=== PATIENT | male | born 1955 | race Caucasian/White ===

== ENCOUNTER 2016-03-21 05:20 | Inpatient (IN) | payer OTHER ==
--- NOTE | 2016-03-10 11:55 | EKG REPORT ---
SEVERITY:- ABNORMAL ECG - SINUS RHYTHM PROBABLE LEFT VENTRICULAR HYPERTROPHY ANTERIOR ST ELEVATION, PROBABLY DUE TO LVH : Confirmed by: Sanchez Vazquez 10-Mar-2016 11:55:29
[2016-03-10 12:30] LABS: HEMATOCRIT 43.6 % (37.9-51.0); HEMOGLOBIN 15.4 g/dL (13.5-17.0); HGB HCT DIFFERENCE 2.6; MEAN CORPUSCULAR HEMOGLOBIN 31.3 pg (27.0-33.4); MEAN CORPUSCULAR HGB CONC 35.4 g/dL (32.0-36.0); MEAN CORPUSCULAR VOLUME 89 fl (80-97); RED BLOOD COUNT 4.93 10^6/uL (4.35-5.55); RED CELL DISTRIBUTION WIDTH 12.1 % (11.5-14.0); WHITE BLOOD COUNT 4.5 10^3/uL (4.0-10.5)
[2016-03-10 12:53] LABS: APPEARANCE,URINE CLEAR; BILIRUBIN,URINE NEGATIVE (NEGATIVE); GLUCOSE, URINE NEGATIVE (NEGATIVE); KETONES,URINE NEGATIVE (NEGATIVE); LEUKOCYTE ESTERASE,URINE NEGATIVE (NEGATIVE); NITRITE,URINE NEGATIVE (NEGATIVE); PROTEIN,URINE NEGATIVE (NEGATIVE); URINE SPECIFIC GRAVITY 1.008; UROBILINOGEN,URINE NEGATIVE mg/dL (<2.0)
[2016-03-10 12:58] LABS: ANION GAP 15 (5-19); BLOOD UREA NITROGEN 12 mg/dL (7-20); CALCIUM 9.2 mg/dL (8.4-10.2); CARBON DIOXIDE 24 mmol/L (22-30); CHLORIDE 95 mmol/L (98-107); CREATININE RESULT 0.77 mg/dL (0.52-1.25); GLUCOSE 73 mg/dL (75-110); POTASSIUM 4.5 mmol/L (3.6-5.0)
[~2016-03-21 05:20] MED LIST: BUPIVACAINE INJ/PF LIPOSOME/PF 266 MG/20 ML SDV IJ PRN; IBUPROFEN 800 MG in NORMAL SALINE 250 ML IV PRN; LANSOPRAZOLE 15 MG TAB.RAP.DR PO PRN; LIDOCAINE 0.5% INJ-PF (5 MG/ML) 50 ML SDV INJ PRN; OXYCODONE HCL SR 10 MG TABLET PO PRN; RINGERS SOLUTION,LACTATED 1,000 ML IV PRN; SCOPOLAMINE HYDROBROMIDE 1.5 MG PATCH.TD72 TD PRN; VANCOMYCIN HCL 1,000 MG in DEXTROSE 5%-WATER 250 ML IV SCH
[2016-03-21 06:01] LABS: PROTHROMBIN TIME 12.4 SEC (11.4-15.4)
[2016-03-21 06:02] LABS: PARTIAL THROMBOPLASTIN TIME 24.9 SEC (23.5-35.8)
[2016-03-21 06:09] LABS: ALBUMIN 4.6 g/dL (3.5-5.0); BILIRUBIN,TOTAL 1.7 mg/dL (0.2-1.3); TOTAL PROTEIN 7.7 g/dL (6.3-8.2)
[2016-03-21] MEDS ORDERED: CLINDAMYCIN 600 MG/D5W RTU 600 MG/50 ML RTUPB IV ONE (06:19)
[2016-03-21] MEDS ORDERED: BUPIVACAINE INJ/PF LIPOSOME/PF 266 MG/20 ML SDV ONE (06:51)
[2016-03-21] MEDS ORDERED: THROMBIN (BOVINE) TOPICAL 20000 UNIT VIAL ONE (06:51)
[2016-03-21] MEDS ORDERED: THROMBIN (BOVINE) 5000 UNIT EPITAXIS KIT ONE (06:51)
[2016-03-21] MEDS ORDERED: MORPHINE SULFATE 10 MG/ML INJ IV PRN ×3 (08:06→08:46)
[2016-03-21] MEDS ORDERED: DIPHENHYDRAMINE HCL 50 MG/ML VIAL IV PRN (08:06)
[2016-03-21] MEDS ORDERED: ONDANSETRON HCL INJ/PF 4 MG/2 ML SDV IV PRN (08:06)
[2016-03-21] MEDS ORDERED: PROMETHAZINE HCL INJ 25 MG/1 ML VIAL IV PRN ×2 (08:06)
[2016-03-21] MEDS ORDERED: FENTANYL CITRATE INJ/PF 100 MCG/2 ML AMPUL IV PRN ×3 (08:06)
[2016-03-21] MEDS ORDERED: OXYCODONE-ACETAMINOPHEN 5-325 MG TABLET PO PRN ×2 (08:06)
[2016-03-21] MEDS ORDERED: MEPERIDINE HCL/PF INJ 25 MG/1 ML DISP.SYRIN IV PRN (08:06)
[2016-03-21] MEDS ORDERED: MAG HYDROX/AL HYDROX/SIMETH SUSP 30 ML UDCUP PO PRN (08:46)
[2016-03-21] MEDS ORDERED: RINGERS SOLUTION,LACTATED 1,000 ML IV PRN (08:46)
[2016-03-21] MEDS ORDERED: MORPHINE SULFATE 10 MG/ML INJ IM PRN (08:46)
[2016-03-21] MEDS ORDERED: ONDANSETRON 4 MG TAB.RAPDIS PO PRN (08:46)
[2016-03-21] MEDS ORDERED: ZOLPIDEM TARTRATE 5 MG TABLET PO PRN (08:46)
--- NOTE | 2016-03-21 08:46 | Operative Report ---
Operative Report DATE OF SURGERY: 03/21/16 PREOPERATIVE DIAGNOSIS: Right knee arthritis OPERATION: Right knee arthroplasty SURGEON: RAFAEL FERNANDEZ ANESTHESIA: Spinal TISSUE REMOVED OR ALTERED: Bone to pathology ESTIMATED BLOOD LOSS: 100 PROCEDURE: Implants used: Femur: Marleny beaulieuathlon #7 CR femur Tibia:, #6 tibia Tibial liner: 9 millimeters CS insert Patella: 38 mm oval patella Procedure with the patient supine on the operating table the, right the limb is prepped and draped in a sterile fashion. The limb was elevated for exsanguination and the tourniquet inflated to 280 torr. A standard midline median parapatellar approach the knee is taken. Access is gained to the femoral canal through the intercondylar notch. Intramedullary alignment instrumentation used to resect 10 mm of distal femur in 5 of valgus. Sizing guide indicated a size, 7 femur. Appropriate cutting jig is then used to fashion anterior posterior and chamfer cuts. A trial reduction femurs performed and this is judged to be adequate. Attention was next turned to the tibia. Using an extra medullary alignment system 9 millimeters was resected off the lateral tibial plateau. This is sized to a size 6 tibia. A trial reduction was now performed with a 7 femur and a 6 tibia using a 9 millimeters spacer. It is full extension and central patellofemoral tracking. The articular surface the patella was next resected using an oscillating saw. All trial implants were removed. Polymethylmethacrylate is mixed and used to cement the above implants in place. On adequate curing the cement excess cement was removed the tourniquet was deflated hemostasis obtained the wound is then closed in layers using interrupted Vicryl followed by lennox. A sterile compressive dressing was applied and the patient returned to recovery room in satisfactory condition.
[2016-03-21] MEDS ORDERED: PROPOFOL INJ 200 MG/20 ML VIAL IV ONE (09:07)
[2016-03-21] MEDS ORDERED: FENTANYL CITRATE INJ/PF 250 MCG/5 ML AMPULE ONE (09:07)
[2016-03-21] MEDS ORDERED: DEXMEDETOMIDINE INJ 80 MCG/20 ML VIAL IV ONE (09:07)
[2016-03-21] MEDS ORDERED: MIDAZOLAM 2 MG/2 ML INJ ONE (09:07)
[2016-03-21] MEDS ORDERED: EPHEDRINE SULFATE INJ 50 MG/1 ML AMPULE ONE (09:09)
[2016-03-21] MEDS ORDERED: CETIRIZINE HCL 10 MG PO SCH (10:00)
[2016-03-21] MEDS: CETIRIZINE 10 MG TABLET PO SCH (12:42)
[2016-03-21] MEDS: OXYCODONE HCL SR 10 MG TABLET PO SCH (12:43)
[2016-03-21] MEDS: PRENATAL VITAMIN W-O CA NO5/FE FUMARATE/FA CAPSULE PO SCH (12:44)
[2016-03-21] MEDS: SENNOSIDES/DOCUSATE 8.6-50 MG 1 EACH TABLET PO SCH ×2 (12:44→18:24)
[2016-03-21] MEDS: MORPHINE SULFATE 10 MG/ML INJ IV PRN ×2 (12:45→18:24)
[2016-03-21] MEDS ORDERED: PHENYLEPHRINE HCL INJ/PF 10 MG/1 ML SDV ONE (13:31)
[2016-03-21] MEDS ORDERED: LIDOCAINE 2% INJ-PF (20 MG/ML) 10 ML AMPUL ONE (13:31)
[2016-03-21] MEDS: IBUPROFEN 800 MG in NORMAL SALINE 250 ML IV SCH (14:20)
[2016-03-21] MEDS ORDERED: VANCOMYCIN HCL 1,000 MG in DEXTROSE 5%-WATER 250 ML IV ONE (20:46)
[2016-03-21] MEDS: ATORVASTATIN CALCIUM 20 MG TABLET PO SCH (21:48)
[2016-03-21] MEDS: RIVAROXABAN 10 MG TABLET PO SCH (21:49)
[2016-03-22] MEDS: OXYCODONE HCL SR 10 MG TABLET PO SCH ×3 (01:16→22:08)
[2016-03-22] MEDS: IBUPROFEN 800 MG in NORMAL SALINE 250 ML IV SCH ×4 (01:17→22:07)
[2016-03-22 05:52] LABS: HEMATOCRIT 35.8 % (37.9-51.0); HGB HCT DIFFERENCE 0.2; MEAN CORPUSCULAR HEMOGLOBIN 30.9 pg (27.0-33.4); MEAN CORPUSCULAR HGB CONC 33.4 g/dL (32.0-36.0); MEAN CORPUSCULAR VOLUME 92 fl (80-97); RED BLOOD COUNT 3.88 10^6/uL (4.35-5.55); RED CELL DISTRIBUTION WIDTH 12.2 % (11.5-14.0); WHITE BLOOD COUNT 8.4 10^3/uL (4.0-10.5)
[2016-03-22 06:08] LABS: ANION GAP 7 (5-19); BLOOD UREA NITROGEN 11 mg/dL (7-20); CALCIUM 8.5 mg/dL (8.4-10.2); CARBON DIOXIDE 26 mmol/L (22-30); CHLORIDE 100 mmol/L (98-107); CREATININE RESULT 0.68 mg/dL (0.52-1.25); GLUCOSE 104 mg/dL (75-110); POTASSIUM 4.2 mmol/L (3.6-5.0); SODIUM 132.6 mmol/L (137-145)
[2016-03-22] MEDS: LANSOPRAZOLE 30 MG TAB.RAP.DR PO SCH (06:53)
[2016-03-22] MEDS: MORPHINE SULFATE 10 MG/ML INJ IV PRN (07:07)
--- NOTE | 2016-03-22 07:21 | PDOC PROGRESS REPORT ---
Subjective Progress Note for:: 03/22/16 Subjective:: 60-year-old white female postop day 1 status post right knee arthroplasty. has no complaints of discomfort. Physical Exam Vital Signs: Temp Pulse Resp BP Pulse Ox 36.6 C 81 19 118/79 99 03/22/16 03:56 03/22/16 03:56 03/22/16 03:56 03/22/16 03:56 03/22/16 03:56 Intake & Output 03/21/16 03/22/16 03/23/16 06:59 06:59 06:59 Intake Total 0 6810 Output Total 4410 Balance 0 2400 General appearance: PRESENT: no acute distress Head exam: PRESENT: normocephalic Eye exam: PRESENT: EOMI Respiratory exam: PRESENT: unlabored Cardiovascular exam: PRESENT: RRR Pulses: PRESENT: +1 pedal pulses bilateral Vascular exam: PRESENT: normal capillary refill GI/Abdominal exam: PRESENT: soft Musculoskeletal exam: PRESENT: other - Right knee dressing is clean dry and intact. Distal neurovascular examinations intact. Neurological exam: PRESENT: alert, awake, oriented to person, oriented to place , oriented to time, oriented to situation. ABSENT: motor sensory deficit Psychiatric exam: PRESENT: appropriate affect, normal mood. ABSENT: homicidal ideation, suicidal ideation Skin exam: PRESENT: warm Results Laboratory Results: 03/22/16 05:05 03/22/16 05:05 03/22/16 03/22/16 05:05 05:05 WBC 8.4 RBC 3.88 L Hgb 12.0 L Hct 35.8 L MCV 92 MCH 30.9 MCHC 33.4 RDW 12.2 Plt Count 171 Sodium 132.6 L Potassium 4.2 Chloride 100 Carbon Dioxide 26 Anion Gap 7 BUN 11 Creatinine 0.68 Est GFR ( Amer) > 60 Est GFR (Non-Af Amer) > 60 Glucose 104 Calcium 8.5 Impressions: Chest X-Ray 03/10/16 12:08 IMPRESSION: NO SIGNIFICANT RADIOGRAPHIC FINDING IN THE CHEST. Knee X-Ray 03/21/16 08:47 IMPRESSION: SATISFACTORY POSTOPERATIVE RIGHT KNEE. Status: Imported from PACS Assessment & Plan - Diagnosis (1) Arthritis of right knee Plan: Patient will continue with postoperative rehabilitation. Dressing will be changed tomorrow. Patient is considering discharge options, either to home with home health services versus rehabilitation. - Time Time Spent with patient: 15-24 minutes Anticipated discharge: SNF Within: within 48 hours
[2016-03-22] MEDS: CETIRIZINE 10 MG TABLET PO SCH (09:47)
[2016-03-22] MEDS: PRENATAL VITAMIN W-O CA NO5/FE FUMARATE/FA CAPSULE PO SCH (09:47)
[2016-03-22] MEDS: SENNOSIDES/DOCUSATE 8.6-50 MG 1 EACH TABLET PO SCH ×2 (09:47→16:56)
[2016-03-22] MEDS: OXYCODONE HCL IR 5 MG TABLET PO PRN (17:13)
[2016-03-22] MEDS: RIVAROXABAN 10 MG TABLET PO SCH (22:08)
[2016-03-22] MEDS: ATORVASTATIN CALCIUM 20 MG TABLET PO SCH (22:08)
[2016-03-23] MEDS: IBUPROFEN 800 MG in NORMAL SALINE 250 ML IV SCH (05:14)
[2016-03-23] MEDS: LANSOPRAZOLE 30 MG TAB.RAP.DR PO SCH (05:14)
[2016-03-23 07:13] LABS: HEMATOCRIT 32.5 % (37.9-51.0); HEMOGLOBIN 10.8 g/dL (13.5-17.0); HGB HCT DIFFERENCE -0.1; MEAN CORPUSCULAR HEMOGLOBIN 30.6 pg (27.0-33.4); MEAN CORPUSCULAR HGB CONC 33.3 g/dL (32.0-36.0); MEAN CORPUSCULAR VOLUME 92 fl (80-97); RED BLOOD COUNT 3.54 10^6/uL (4.35-5.55); RED CELL DISTRIBUTION WIDTH 12.2 % (11.5-14.0)
[2016-03-23] MEDS: SENNOSIDES/DOCUSATE 8.6-50 MG 1 EACH TABLET PO SCH ×2 (10:52→18:28)
[2016-03-23] MEDS: CETIRIZINE 10 MG TABLET PO SCH (10:52)
[2016-03-23] MEDS: PRENATAL VITAMIN W-O CA NO5/FE FUMARATE/FA CAPSULE PO SCH (10:52)
[2016-03-23] MEDS: ACETAMINOPHEN 325 MG TABLET PO PRN ×2 (10:59→20:46)
[2016-03-23] MEDS: RIVAROXABAN 10 MG TABLET PO SCH (22:26)
[2016-03-23] MEDS: ATORVASTATIN CALCIUM 20 MG TABLET PO SCH (22:26)
[2016-03-23] MEDS: DIPHENHYDRAMINE HCL 50 MG/ML VIAL IV PRN (23:26)
[2016-03-24] MEDS: LANSOPRAZOLE 30 MG TAB.RAP.DR PO SCH (05:52)
--- NOTE | 2016-03-24 06:20 | PDOC TRANSFER SUMMARY ---
General - Admit/Disc Date/PCP Admission Date/Primary Care Provider: 03/21/16 05:20 KAYLIE JEONG Discharge Date: 03/24/16 - Discharge Diagnosis (1) Arthritis of right knee Is this a current diagnosis for this admission?: YesSummary: The patient's 60-year-old white male who presented with progressive right knee pain and functional disability. He was admitted for elective right knee arthroplasty. - Additional Information Resuscitation Status: Full Code Discharge Diet: Regular Discharge Activity: Balance Activity w/Rest Home Medications: Aspirin 81 mg PO QAM 07/16/12 Atorvastatin Calcium [Lipitor 20 mg Tablet] 20 mg PO QHS 02/25/16 Cetirizine HCl [Wal-Zyr] 10 mg PO BID 02/25/16 Sildenafil Citrate [Viagra] 25 - 100 mg PO ASDIR PRN 03/10/16 Oxycodone HCl [Oxy-Ir 5 mg Tablet] 5 mg PO Q6HP PRN #0 tablet 03/24/16 Rivaroxaban [Xarelto 10 mg Tablet] 10 mg PO QHS #0 tablet 03/24/16 History of Present Illness Admission Date/PCP: 03/21/16 05:20 KAYLIE JEONG Patient complains of: Right knee pain and functional disability History of Present Illness: FACUNDO RODAS is a 60 year old male The patient submitted to the operating room where he undergoes an uncomplicated right knee arthroplasty. His returned to floor in satisfactory condition. Pain is relatively well controlled on current analgesic regimen. The patient except excellent progress with physical therapy and waiting 300 feet at a time on the first postoperative day. Dressing is changed on postop day #2. Wound is clean dry and intact. Physical Exam Vital Signs: Temp Pulse Resp BP Pulse Ox 36.6 C 92 18 155/75 H 100 03/24/16 04:00 03/24/16 04:00 03/24/16 04:00 03/24/16 04:00 03/24/16 04:00 Intake & Output 03/22/16 03/23/16 03/24/16 06:59 06:59 06:59 Intake Total 7810 3343 1914 Output Total 4410 Balance 3400 3343 1914 Weight 87.6 kg General appearance: PRESENT: no acute distress Head exam: PRESENT: normocephalic Eye exam: PRESENT: EOMI Respiratory exam: PRESENT: unlabored Cardiovascular exam: PRESENT: RRR Pulses: PRESENT: +1 pedal pulses bilateral Vascular exam: PRESENT: normal capillary refill GI/Abdominal exam: PRESENT: soft Rectal exam: PRESENT: deferred Extremities exam: PRESENT: tenderness - The patient is minor edema and tenderness about the right knee. Range of motion is mildly limited at both extremes., +1 edema Neurological exam: PRESENT: alert, awake, oriented to person, oriented to place , oriented to time, oriented to situation Psychiatric exam: PRESENT: appropriate affect, normal mood. ABSENT: homicidal ideation, suicidal ideation Skin exam: PRESENT: warm Results Laboratory Results: 03/23/16 06:12 03/22/16 05:05 03/23/16 06:12 WBC 8.0 RBC 3.54 L Hgb 10.8 L Hct 32.5 L MCV 92 MCH 30.6 MCHC 33.3 RDW 12.2 Plt Count 159 Impressions: Chest X-Ray 03/10/16 12:08 IMPRESSION: NO SIGNIFICANT RADIOGRAPHIC FINDING IN THE CHEST. Knee X-Ray 03/21/16 08:47 IMPRESSION: SATISFACTORY POSTOPERATIVE RIGHT KNEE. Status: Imported from PACS Transfer Plan - Disposition Transfer Plan: The patient will be transferred to group home facility for postoperative rehabilitation. Physical therapy and group home can both involved. Patient can focus on range of motion, strengthening of the right knee as well as weightbearing as tolerated ambulation.. The patient will follow up with Dr. Morris in the [facility] for surgery in approximate 2 weeks for staple removal. - Time Spent with Patient Time spent with patient: Less than 30 Minutes Plan Discharge Plan: Patient to be discharge to group home facility for postoperative rehabilitation. Patient can return to see Dr. Morris [facility] for surgery approximately 2 weeks for staple removal.
[2016-03-24 06:52] LABS: HEMATOCRIT 33.9 % (37.9-51.0); HEMOGLOBIN 11.3 g/dL (13.5-17.0); MEAN CORPUSCULAR HEMOGLOBIN 30.4 pg (27.0-33.4); MEAN CORPUSCULAR HGB CONC 33.3 g/dL (32.0-36.0); MEAN CORPUSCULAR VOLUME 91 fl (80-97); RED BLOOD COUNT 3.71 10^6/uL (4.35-5.55); RED CELL DISTRIBUTION WIDTH 12.3 % (11.5-14.0); WHITE BLOOD COUNT 8.2 10^3/uL (4.0-10.5)
[2016-03-24] MEDS: CETIRIZINE 10 MG TABLET PO SCH (13:27)
[2016-03-24] MEDS: PRENATAL VITAMIN W-O CA NO5/FE FUMARATE/FA CAPSULE PO SCH (13:28)
[2016-03-24] MEDS: DIPHENHYDRAMINE HCL 50 MG/ML VIAL IV PRN (13:31)
[2016-03-24] MEDS: SENNOSIDES/DOCUSATE 8.6-50 MG 1 EACH TABLET PO SCH ×2 (13:33→17:44)
[2016-03-24] MEDS: RIVAROXABAN 10 MG TABLET PO SCH (22:32)
[2016-03-24] MEDS: ATORVASTATIN CALCIUM 20 MG TABLET PO SCH (22:32)
[2016-03-25] MEDS: LANSOPRAZOLE 30 MG TAB.RAP.DR PO SCH (05:51)
--- NOTE | 2016-03-25 06:33 | PDOC PROGRESS REPORT ---
Subjective Progress Note for:: 03/25/16 Subjective:: Patient without new complaints today. Physical Exam Vital Signs: Temp Pulse Resp BP Pulse Ox 36.9 C 75 18 166/76 H 98 03/25/16 03:27 03/25/16 03:27 03/25/16 03:27 03/25/16 03:27 03/25/16 03:27 Intake & Output 03/23/16 03/24/16 03/25/16 06:59 06:59 06:59 Intake Total 3343 1914 920 Balance 3343 1914 920 Weight 87.6 kg General appearance: PRESENT: no acute distress Head exam: PRESENT: normocephalic Eye exam: PRESENT: EOMI Respiratory exam: PRESENT: unlabored Cardiovascular exam: PRESENT: RRR Pulses: PRESENT: +1 pedal pulses bilateral Vascular exam: PRESENT: normal capillary refill GI/Abdominal exam: PRESENT: soft Rectal exam: PRESENT: deferred Extremities exam: PRESENT: other - Right knee dressing with minor serous drainage. Moderate swelling about the midportion of the right lower extremity. Distal neurovascular examinations intact. Results Laboratory Results: 03/24/16 06:12 03/22/16 05:05 03/24/16 06:12 WBC 8.2 RBC 3.71 L Hgb 11.3 L Hct 33.9 L MCV 91 MCH 30.4 MCHC 33.3 RDW 12.3 Plt Count 178 Impressions: Chest X-Ray 03/10/16 12:08 IMPRESSION: NO SIGNIFICANT RADIOGRAPHIC FINDING IN THE CHEST. Knee X-Ray 03/21/16 08:47 IMPRESSION: SATISFACTORY POSTOPERATIVE RIGHT KNEE. Assessment & Plan - Diagnosis (1) Arthritis of right knee Is this a current diagnosis for this admission?: YesPlan: 60-year-old white male status post right knee arthroplasty now postop day #4. He is awaiting snf solid replacement. It's unfortunate these issues could not have been resolved prior to this time and actually prior to his admission - Time Time Spent with patient: 15-24 minutes Anticipated discharge: SNF Within: when bed available
[2016-03-25] MEDS: PRENATAL VITAMIN W-O CA NO5/FE FUMARATE/FA CAPSULE PO SCH (09:30)
[2016-03-25] MEDS: CETIRIZINE 10 MG TABLET PO SCH (09:30)
[2016-03-25] MEDS: SENNOSIDES/DOCUSATE 8.6-50 MG 1 EACH TABLET PO SCH ×2 (09:47→17:12)
[2016-03-25] MEDS ORDERED: DIPHENHYDRAMINE HCL 25 MG CAPSULE PO PRN (16:23)
[2016-03-25] MEDS: RIVAROXABAN 10 MG TABLET PO SCH (22:47)
[2016-03-25] MEDS: ATORVASTATIN CALCIUM 20 MG TABLET PO SCH (22:47)
[2016-03-26] MEDS: LANSOPRAZOLE 30 MG TAB.RAP.DR PO SCH (05:36)
--- NOTE | 2016-03-26 08:02 | PDOC PROGRESS REPORT ---
Subjective Progress Note for:: 03/26/16 Subjective:: Patient's discomfort is well controlled and he is now trying to avoid taking narcotics. Physical Exam Vital Signs: Temp Pulse Resp BP Pulse Ox 37.4 C 80 16 143/66 H 97 03/25/16 23:35 03/25/16 23:35 03/25/16 23:35 03/25/16 23:35 03/25/16 23:35 Intake & Output 03/25/16 03/26/16 03/27/16 06:59 06:59 06:59 Intake Total 1180 1060 Balance 1180 1060 General appearance: PRESENT: no acute distress Head exam: PRESENT: normocephalic Eye exam: PRESENT: EOMI Respiratory exam: PRESENT: unlabored Cardiovascular exam: PRESENT: RRR Pulses: PRESENT: +1 pedal pulses bilateral Vascular exam: PRESENT: normal capillary refill GI/Abdominal exam: PRESENT: soft Rectal exam: PRESENT: deferred Extremities exam: PRESENT: other - Right knee dressing was small amount of drainage which appears to be static and not increasing. There is a modest amount of edema about the knee as well as a small to moderate amount about the ankle. This brisk capillary refill in both motor and sensory examination is without focal deficit. Neurological exam: PRESENT: alert, awake, oriented to person, oriented to place , oriented to time, oriented to situation, CN II-XII grossly intact. ABSENT: motor sensory deficit Psychiatric exam: PRESENT: appropriate affect, normal mood. ABSENT: homicidal ideation, suicidal ideation Results Laboratory Results: 03/24/16 06:12 03/22/16 05:05 Impressions: Chest X-Ray 03/10/16 12:08 IMPRESSION: NO SIGNIFICANT RADIOGRAPHIC FINDING IN THE CHEST. Knee X-Ray 03/21/16 08:47 IMPRESSION: SATISFACTORY POSTOPERATIVE RIGHT KNEE. Assessment & Plan - Diagnosis (1) Arthritis of right knee Is this a current diagnosis for this admission?: YesPlan: 60-year-old white male now postop day 5, status post right knee arthroplasty. He continues to remain hospitalized awaiting appropriate arrangements for transfer to a rehabilitation facility. Length of stay is now increased at least 2 days waiting for this. - Time Time Spent with patient: 15-24 minutes Anticipated discharge: SNF Within: when bed available
[2016-03-26] MEDS: CETIRIZINE 10 MG TABLET PO SCH (09:08)
[2016-03-26] MEDS: PRENATAL VITAMIN W-O CA NO5/FE FUMARATE/FA CAPSULE PO SCH (09:08)
[2016-03-26] MEDS: SENNOSIDES/DOCUSATE 8.6-50 MG 1 EACH TABLET PO SCH ×2 (09:08→17:20)
[2016-03-26] MEDS: RIVAROXABAN 10 MG TABLET PO SCH (21:45)
[2016-03-26] MEDS: ATORVASTATIN CALCIUM 20 MG TABLET PO SCH (21:45)
[2016-03-27] MEDS: LANSOPRAZOLE 30 MG TAB.RAP.DR PO SCH (05:29)
[2016-03-27] MEDS: SENNOSIDES/DOCUSATE 8.6-50 MG 1 EACH TABLET PO SCH ×2 (09:08→17:15)
[2016-03-27] MEDS: PRENATAL VITAMIN W-O CA NO5/FE FUMARATE/FA CAPSULE PO SCH (09:15)
[2016-03-27] MEDS: CETIRIZINE 10 MG TABLET PO SCH (09:15)
--- NOTE | 2016-03-27 10:13 | PDOC PROGRESS REPORT ---
Subjective Progress Note for:: 03/27/16 Subjective:: Patient with some anxiety regarding lack of progress for his [facility] facility placement Physical Exam Vital Signs: Temp Pulse Resp BP Pulse Ox 36.7 C 76 16 155/77 H 100 03/27/16 07:48 03/27/16 07:48 03/27/16 07:48 03/27/16 07:48 03/27/16 07:48 Intake & Output 03/26/16 03/27/16 03/28/16 06:59 06:59 06:59 Intake Total 1060 1560 Balance 1060 1560 Pulses: PRESENT: other - Dressing is unchanged and swelling is decreased about the knee. Results Laboratory Results: 03/24/16 06:12 03/22/16 05:05 Impressions: Chest X-Ray 03/10/16 12:08 IMPRESSION: NO SIGNIFICANT RADIOGRAPHIC FINDING IN THE CHEST. Knee X-Ray 03/21/16 08:47 IMPRESSION: SATISFACTORY POSTOPERATIVE RIGHT KNEE. Assessment & Plan - Diagnosis (1) Arthritis of right knee Is this a current diagnosis for this admission?: YesPlan: Patient awaiting [facility] facility placement. Paperwork has been submitted to Karla Barajas as well as [facility] - Time Time Spent with patient: 15-24 minutes Anticipated discharge: SNF Within: within 24 hours, when bed available
[2016-03-27] MEDS: RIVAROXABAN 10 MG TABLET PO SCH (21:41)
[2016-03-27] MEDS: ATORVASTATIN CALCIUM 20 MG TABLET PO SCH (21:41)
[2016-03-27] MEDS: OXYCODONE HCL IR 5 MG TABLET PO PRN (21:48)
[2016-03-28] MEDS: LANSOPRAZOLE 30 MG TAB.RAP.DR PO SCH (06:44)
[2016-03-28] MEDS: OXYCODONE HCL IR 5 MG TABLET PO PRN (06:49)
[2016-03-28] MEDS: SENNOSIDES/DOCUSATE 8.6-50 MG 1 EACH TABLET PO SCH ×2 (09:13→17:28)
[2016-03-28] MEDS: PRENATAL VITAMIN W-O CA NO5/FE FUMARATE/FA CAPSULE PO SCH (09:19)
[2016-03-28] MEDS: CETIRIZINE 10 MG TABLET PO SCH (09:19)
[2016-03-28 12:54] VITALS: BP 127/76
[2016-03-28] MEDS: ACETAMINOPHEN 325 MG TABLET PO PRN (15:19)
== END 2016-03-28 19:40 | DRG 470 ==
LOC: INOR 05:20 → 4S 10:15
PROVIDERS: ADMIT Orthopaedic Surgery; ATTEND Orthopaedic Surgery
PROC: 0SRC0J9 Replacement of Right Knee Joint with Synthetic Substitute, Cemented, Open Approach (ICD-10-PCS; principal; 2016-03-21 07:30)
DX: M17.11 Unilateral primary osteoarthritis, right knee (principal); I10 Essential (primary) hypertension; M10.9 Gout, unspecified; Z79.899 Other long term (current) drug therapy
CPT/HCPCS: 01402; 36415; 71020; 80048; 80076; 81001; 85027; 85610; 85730; 88305; 88311; 93005; 93010; 94799; C2625; C9290; J1200; J1741; J2250; J2270; J2370; J2704; J3010; J3370; J3490; J7050; J7060

== ENCOUNTER 2017-12-20 11:36 | Emergency (ER) | payer OTHER ==
[2017-12-20] MEDS ORDERED: CLONIDINE HCL 0.2 MG TABLET PO ONE (12:25)
--- NOTE | 2017-12-20 12:26 | ER Document Report ---
ED Medical Screen (RME) - General Chief Complaint: Dizziness Stated Complaint: DIZZINESS Time Seen by Provider: 12/20/17 12:15 Notes: 62 years old male presents today with elevated blood pressure and confusion and tingling sensation and weakness over the left side of the body around 8:00. Also had dizziness on and off. No nausea vomiting. No chest pain or other constitutional symptoms. History of hypertension No focal neurological deficit, no pronator drift TRAVEL OUTSIDE OF THE [place] IN LAST 30 DAYS: No - Related Data Allergies/Adverse Reactions: Penicillins Allergy (Verified 12/20/17 11:41) pt unsure Past Medical History - Past Medical History Cardiac Medical History: Reports: Hx Coronary Artery Disease, Hx Hypercholesterolemia, Hx Hypertension, Hx Peripheral Vascular Disease - stent ( left Femoral Artery Occlusion), Hx Heart Murmur Denies: Hx Atrial Fibrillation, Hx Congestive Heart Failure, Hx Heart Attack , Hx Pulmonary Embolism Pulmonary Medical History: Reports: Hx Pneumonia - as a teen Denies: Hx Asthma, Hx Bronchitis, Hx COPD, Hx Respiratory Failure, Hx Sleep Apnea, Hx Tuberculosis Renal/ Medical History: Denies: Hx Benign Prostatic Hyperplasia, Hx End Stage Renal Disease, Hx Kidney Stones, Hx Peritoneal Dialysis Malignancy Medical History: Denies Hx Lung Cancer GI Medical History: Reports: Hx Gastroesophageal Reflux Disease - not a current problem. Denies: Hx Crohn's Disease, Hx Hiatal Hernia, Hx Irritable Bowel, Hx Liver Failure, Hx Pancreatitis, Hx Ulcer Musculoskeltal Medical History: Reports Hx Arthritis, Denies Hx Fibromyalgia, Denies Hx Muscular Dystrophy Psychiatric Medical History: Denies: Hx Bipolar Disorder, Hx Depression, Hx Post Traumatic Stress Disorder , Hx Schizophrenia Traumatic Medical History: Denies: Hx Fractures Past Surgical History: Reports: Hx Cardiac Catheterization - stent placed, Hx Coronary Stent. Denies: Hx Appendectomy, Hx Bowel Surgery, Hx Cholecystectomy, Hx Colostomy, Hx Coronary Artery Bypass Graft, Hx Gastric Bypass Surgery, Hx Herniorrhaphy, Hx Pacemaker, Hx Tonsillectomy - Immunizations Hx Diphtheria, Pertussis, Tetanus Vaccination: Yes Physical Exam - Vital signs Vitals: Temp Pulse Resp BP Pulse Ox 97.8 F 81 16 145/84 H 97 12/20/17 11:49 12/20/17 11:49 12/20/17 11:49 12/20/17 11:49 12/20/17 11:49 Course - Vital Signs Vital signs: Temp Pulse Resp BP Pulse Ox 97.8 F 81 16 145/84 H 97 12/20/17 11:49 12/20/17 11:49 12/20/17 11:49 12/20/17 11:49 12/20/17 11:49 Doctor's Discharge - Discharge Referrals: PRATIMA GARCIA FNP [Primary Care Provider] - Follow up as needed
--- NOTE | 2017-12-20 12:58 | RADIOLOGY REPORT (SQ) ---
EXAM DESCRIPTION: CT HEAD WITHOUT COMPLETED DATE/TIME: 12/20/2017 12:49 pm REASON FOR STUDY: tia COMPARISON: None. TECHNIQUE: Axial images acquired through the brain without intravenous contrast. Images reviewed wi th bone, brain and subdural windows. Additional sagittal and coronal reconstructions were generated. Images stored on PACS. All CT scanners at this facility use dose modulation, iterative reconstruction, and/or weight based d osing when appropriate to reduce radiation dose to as low as reasonably achievable (ALARA). [facility]: Dose Right [facility]: CareDose [facility]: Dose Right [facility]: Teradose 4D [facility]: Kynded RADIATION DOSE: CT Rad equipment meets quality standard of care and radiation dose reduction techniq ues were employed. CTDIvol: 53.2 mGy. DLP: 991 mGy-cm. mGy. LIMITATIONS: None. FINDINGS: VENTRICLES: Prominent. CEREBRUM: No masses. No hemorrhage. No midline shift. Areas of low density in the white matter mos t likely due to chronic micro-vascular ischemic change. No evidence for acute infarction. CEREBELLUM: No masses. No hemorrhage. No alteration of density. No evidence for acute infarction. EXTRAAXIAL SPACES: Mild age-related involutional change. No fluid collections. No masses. ORBITS AND GLOBE: No intra- or extraconal masses. Normal contour of globe without masses. CALVARIUM: No fracture. PARANASAL SINUSES: No fluid or mucosal thickening. SOFT TISSUES: No mass or hematoma. OTHER: No other significant finding. IMPRESSION: MILD CHRONIC CHANGES OF ATROPHY AND MICROVASCULAR ISCHEMIA. NO ACUTE PROCESS. EVIDENCE OF ACUTE STROKE: NO. TECHNICAL DOCUMENTATION: JOB ID: [id number] Quality ID # [id number]: Final reports with documentation of one or more dose reduction techniques (e.g., Au tomated exposure control, adjustment of the mA and/or kV according to patient size, use of iterative reconstruction technique) 2010 [employer]- All Rights Reserved Reading location - IP/workstation name: [facility]-[email or web address]
--- NOTE | 2017-12-20 13:56 | ER Document Report ---
ED General - General Chief Complaint: Dizziness Stated Complaint: DIZZINESS Time Seen by Provider: 12/20/17 12:15 Mode of Arrival: Medic Information source: Patient, Emergency Med Personnel Notes: This is a 62-year-old man with a history of hypertension, coronary artery disease (stent), PAD (left groin stent), was brought into the emergency room by EMS with disorientation, generalized weakness and left arm tingling. EMS reported patient to be hypertensive at the scene (218/102. Patient states that his disorientation has since improved. He denies any slurred speech, difficulty swallowing or focal weakness at this time. TRAVEL OUTSIDE OF THE [place] IN LAST 30 DAYS: No - HPI Onset: Just prior to arrival Onset/Duration: Sudden Quality of pain: No pain Severity: None Pain Level: Denies Associated symptoms: Shortness of breath, Sweating, Weakness, Other - Left arm tingling. denies: Chest pain Exacerbated by: Denies Relieved by: Denies Similar symptoms previously: No Recently seen / treated by doctor: No - Related Data Allergies/Adverse Reactions: Penicillins Allergy (Verified 12/20/17 11:41) pt unsure Past Medical History - General Information source: Patient - Social History Smoking Status: Former Smoker Cigarette use (# per day): No Chew tobacco use (# tins/day): No Frequency of alcohol use: None Drug Abuse: None Lives with: Family Family History: None, Other - crohns, colitis Patient has suicidal ideation: No Patient has homicidal ideation: No - Past Medical History Cardiac Medical History: Reports: Hx Coronary Artery Disease, Hx Hypercholesterolemia, Hx Hypertension, Hx Peripheral Vascular Disease - stent ( left Femoral Artery Occlusion), Hx Heart Murmur Denies: Hx Atrial Fibrillation, Hx Congestive Heart Failure, Hx Heart Attack , Hx Pulmonary Embolism Pulmonary Medical History: Reports: Hx Pneumonia - as a teen Denies: Hx Asthma, Hx Bronchitis, Hx COPD, Hx Respiratory Failure, Hx Sleep Apnea, Hx Tuberculosis Renal/ Medical History: Denies: Hx Benign Prostatic Hyperplasia, Hx End Stage Renal Disease, Hx Kidney Stones, Hx Peritoneal Dialysis Malignancy Medical History: Denies Hx Lung Cancer GI Medical History: Reports: Hx Gastroesophageal Reflux Disease - not a current problem. Denies: Hx Crohn's Disease, Hx Hiatal Hernia, Hx Irritable Bowel, Hx Liver Failure, Hx Pancreatitis, Hx Ulcer Musculoskeletal Medical History: Reports Hx Arthritis, Denies Hx Fibromyalgia, Denies Hx Muscular Dystrophy Psychiatric Medical History: Denies: Hx Bipolar Disorder, Hx Depression, Hx Post Traumatic Stress Disorder , Hx Schizophrenia Traumatic Medical History: Denies: Hx Fractures Past Surgical History: Reports: Hx Cardiac Catheterization - stent placed, Hx Coronary Stent. Denies: Hx Appendectomy, Hx Bowel Surgery, Hx Cholecystectomy, Hx Colostomy, Hx Coronary Artery Bypass Graft, Hx Gastric Bypass Surgery, Hx Herniorrhaphy, Hx Pacemaker, Hx Tonsillectomy - Immunizations Hx Diphtheria, Pertussis, Tetanus Vaccination: Yes Review of Systems - Review of Systems Constitutional: denies: Chills, Fever EENT: No symptoms reported Cardiovascular: See HPI Respiratory: No symptoms reported Gastrointestinal: No symptoms reported Genitourinary: No symptoms reported Male Genitourinary: No symptoms reported Musculoskeletal: No symptoms reported Skin: No symptoms reported Hematologic/Lymphatic: No symptoms reported Neurological/Psychological: No symptoms reported Physical Exam - Vital signs Vitals: Temp Pulse Resp BP Pulse Ox 97.8 F 81 16 145/84 H 97 12/20/17 11:49 12/20/17 11:49 12/20/17 11:49 12/20/17 11:49 12/20/17 11:49 Notes: Physical exam: GENERAL: Patient is alert, he is oriented x3. He is in no acute distress. His blood pressure is 157/84 with a pulse of 79 and an O2 sat of 98% on room air HEAD: Atraumatic, normocephalic. EYES: Pupils equal round and reactive to light, extraocular movements intact, sclera anicteric, conjunctiva are normal. ENT: TMs normal, nares patent, oropharynx clear without exudates. Moist mucous membranes. NECK: Normal range of motion, supple without obvious mass or JVD. LUNGS: Breath sounds clear to auscultation bilaterally and equal. No wheezes rales or rhonchi. HEART: Regular rate and rhythm without murmurs, rubs or gallops. ABDOMEN: Soft, normoactive bowel sounds. No tenderness to palpation. No guarding, no rebound. No masses appreciated. EXTREMITIES: Normal range of motion, no pitting or edema. No clubbing or cyanosis. NEUROLOGICAL: Cranial nerves II through XII grossly intact. Normal speech, moving all extremities. NIH score equals 0: Patient is alert and keenly responsive, he does know the month as well as his age, he is able to open and close his eyes and open and close his fists, his horizontal gaze is normal, his visual house are good, there is no facial palsy , there is no motor arm or leg drift on either side, finger to nose and heel to doyle are good (right side was limited due to a knee replacement), sensory is grossly intact, picture description, object naming and sentence reading is good , no dysarthria or extinction. PSYCH: Normal mood, normal affect. SKIN: Warm, Dry, normal turgor, no rashes or lesions noted. Course - Re-evaluation Re-evalutation: 12/20/17 17:01 Note: This is a 62-year-old man with a significant history for vascular disease who presents with near syncopal episode, sudden onset of weakness and left arm tingling in the setting of an elevated blood pressure (218/102). Patient's troponin is positive. He is currently chest pain-free with stable vital signs and an improved blood pressure. I have spoken to Dr. Espinoza at [facility] who is willing to accept the patient for non-STEMI workup. Patient has been given aspirin, Lovenox and nitrates. Additionally, the patient's sodium was noted to be low. He does report having hyponatremia in the past and it is been suggested by his primary care doctor that this may be due to his beer intake (i.e. Beer potomania). However, he does not provide a history significant intake that would cause this level. In any event, he is alert and oriented at this time and I am awaiting serum osmolality lately, urine today and urine sodium. 12/20/17 18:35 Note: In regards to the patient's hyponatremia: Serum osmolality is low consistent with a true hyponatremia. Urine osmolality is greater than 100. This goes against beer Potomania. While the patient appears euvolemic clinically, his chloride is somewhat low and it is possible that he may be on the slightly hypovolemic side. His urine sodium is greater than 25 which suggests renal loss. While the patient first initially denied being on a diuretic, he now remembers being on hydrochlorothiazide. So ultimately, I think this is the source of his hyponatremia. - Vital Signs Vital signs: Temp Pulse Resp BP Pulse Ox 97.8 F 81 13 157/84 H 99 12/20/17 11:49 12/20/17 11:49 12/20/17 17:34 12/20/17 17:34 12/20/17 17:34 - Laboratory Result Diagrams: 12/20/17 14:10 12/20/17 14:10 Laboratory results interpreted by me: 12/20/17 12/20/17 12/20/17 12:07 14:10 14:10 MCHC 36.3 H Sodium 123.9 L Chloride 88 L Glucose 112 H Serum Osmolality Total Bilirubin 1.4 H Alkaline Phosphatase 37 L Creatine Kinase 204 H CK-MB (CK-2) Urine Osmolality 178 L 12/20/17 12/20/17 14:10 14:16 MCHC Sodium Chloride Glucose Serum Osmolality 253 L Total Bilirubin Alkaline Phosphatase Creatine Kinase CK-MB (CK-2) 5.99 H Urine Osmolality - Diagnostic Test Radiology reviewed: Image reviewed, Reports reviewed - CT of the head shows no acute stroke or bleed. - EKG Interpretation by Me Rate: Normal Rhythm: NSR - EKG shows normal sinus rhythm with a ventricular rate of 72, no acute ST-T wave changes Critical Care Note - Critical Care Note Total time excluding time spent on procedures (mins): 60 Discharge - Discharge Clinical Impression: NSTEMI, Hyponatremia Condition: Stable Disposition: [facility] Referrals: PRATIMA GARCIA FNP [Primary Care Provider] - Follow up as needed
[2017-12-20 14:31] LABS: ABSOLUTE LYMPHOCYTES (AUTO) 1.2 10^3/uL (0.5-4.7); ABSOLUTE MONOCYTES (AUTO) 0.9 10^3/uL (0.1-1.4); ABSOLUTE NEUT (AUTO) 5.1 10^3/uL (1.7-8.2); BASOPHILS % (AUTO) 0.2 % (0-2); EOSINOPHILS % (AUTO) 0.7 % (0-6); HEMATOCRIT 42.2 % (37.9-51.0); HEMOGLOBIN 15.3 g/dL (13.5-17.0); LYMPHOCYTES % (AUTO) 16.1 % (13-45); MEAN CORPUSCULAR HEMOGLOBIN 31.4 pg (27.0-33.4); MEAN CORPUSCULAR HGB CONC 36.3 g/dL (32.0-36.0); MEAN CORPUSCULAR VOLUME 87 fl (80-97); MONOCYTES % (AUTO) 12.2 % (3-13); PLATELET COUNT 260 10^3/uL (150-450); RED BLOOD COUNT 4.87 10^6/uL (4.35-5.55); RED CELL DISTRIBUTION WIDTH 12.6 % (11.5-14.0); SEGMENTED NEUTROPHILS % (AUTO) 70.8 % (42-78); TOTAL CELLS COUNTED % (AUTO) 100 %; WHITE BLOOD COUNT 7.2 10^3/uL (4.0-10.5)
[2017-12-20 15:00] LABS: ALANINE AMINOTRANSFERASE 30 U/L (21-72); ALBUMIN 4.4 g/dL (3.5-5.0); ALKALINE PHOSPHATASE 37 U/L (38-126); ANION GAP 10 (5-19); ASPARTATE AMINO TRANSFERASE 34 U/L (17-59); BILIRUBIN,DIRECT 0.3 mg/dL (0.0-0.4); BILIRUBIN,TOTAL 1.4 mg/dL (0.2-1.3); BLOOD UREA NITROGEN 7 mg/dL (7-20); CALCIUM 9.5 mg/dL (8.4-10.2); CARBON DIOXIDE 26 mmol/L (22-30); CHLORIDE 88 mmol/L (98-107); CREATINE KINASE 204 U/L (55-170); GLUCOSE 112 mg/dL (75-110); POTASSIUM 4.3 mmol/L (3.6-5.0); SODIUM 123.9 mmol/L (137-145); TOTAL PROTEIN 7.4 g/dL (6.3-8.2)
[2017-12-20 15:12] LABS: CREATINE KINASE MB 5.99 ng/mL (<4.55)
--- NOTE | 2017-12-20 15:13 | RADIOLOGY REPORT (SQ) ---
EXAM DESCRIPTION: CHEST SINGLE VIEW COMPLETED DATE/TIME: 12/20/2017 2:52 pm REASON FOR STUDY: disorientation COMPARISON: 03/10/2016 EXAM PARAMETERS: NUMBER OF VIEWS: One view. TECHNIQUE: Single frontal radiographic view of the chest acquired. RADIATION DOSE: NA LIMITATIONS: None. FINDINGS: LUNGS AND PLEURA: No opacities, masses or pneumothorax. No pleural effusion. MEDIASTINUM AND HILAR STRUCTURES: No masses. Contour normal. HEART AND VASCULAR STRUCTURES: Heart normal in size. Normal vasculature. BONES: No acute findings. HARDWARE: None in the chest. OTHER: No other significant finding. IMPRESSION: NO ACUTE RADIOGRAPHIC FINDING IN THE CHEST. TECHNICAL DOCUMENTATION: JOB ID: [id number] [employer]- All Rights Reserved Reading location - IP/workstation name: [email or web address]
[2017-12-20 15:22] LABS: TROPONIN I 1.26 ng/mL
[2017-12-20] MEDS ORDERED: NORMAL SALINE 500 ML IV ONE (15:27)
[2017-12-20] MEDS ORDERED: ENOXAPARIN SODIUM INJ 100 MG/1 ML DISP.SYRIN SUBCUT ONE (17:00)
[2017-12-20 17:01] LABS: OSMOLALITY,URINE 178 mOsm/kg (300-900)
[2017-12-20 17:03] LABS: URINE SODIUM 65 mmol/L (30-90)
--- NOTE | 2017-12-20 18:09 | EKG REPORT ---
SEVERITY:- BORDERLINE ECG - SINUS RHYTHM PROBABLE LEFT ATRIAL ABNORMALITY : Confirmed by: Talha Gale MD 20-Dec-2017 18:08:38
[2017-12-20] MEDS ORDERED: NITROGLYCERIN 2% OINTMENT 1 GM PACKET TP ONE (18:39)
[2017-12-20 21:48] VITALS: BP 125/68
--- NOTE | 2017-12-20 22:01 | ER Document Report ---
Doctor's Note Notes: 12/20/17 22:00 Patient reevaluated up on transfer team arrival. Vital signs stable. Patient is alert and oriented and stable for transfer.
== END 2017-12-20 22:10 | disposition short-term general hospital (02) ==
LOC: ER 11:36
DX: I21.4 Non-ST elevation (NSTEMI) myocardial infarction (principal); E87.1 Hypo-osmolality and hyponatremia; R42 Dizziness and giddiness; I10 Essential (primary) hypertension; I25.10 Atherosclerotic heart disease of native coronary artery without angina pectoris; I73.9 Peripheral vascular disease, unspecified; R53.1 Weakness; R20.0 Anesthesia of skin; R06.02 Shortness of breath; R61 Generalized hyperhidrosis; Z87.891 Personal history of nicotine dependence
CPT/HCPCS: 93005; 99291; 96372; 96360; 36415; 82553; 82550; 83930; 83935; 84300; 85025; 80053; 84484; 71045; 70450; 93010; J7040; J1650